=== PATIENT | male | born 1960 | race African-American/Black ===

== ENCOUNTER 2016-07-16 07:42 | Emergency (ER) | payer OTHER ==
[~2016-07-16] VITALS: Ht 190.5 cm; Wt 63.5 kg
[~2016-07-16 07:42] MED LIST: ALBU8.5H6 IH; ASPI-612 PO; HYDR12.53 PO; IPRA4AER IH; LISI-338 PO; POTASSIUM CHLO10 MEQ PO
[2016-07-16 07:53] VITALS: BP 130/91
--- NOTE | 2016-07-16 07:57 | PHYS DOC ---
Past Medical History Past Medical History: Cancer, COPD, GERD, High Cholesterol, Hypertension Past Surgical History: Other Additional Past Surgical Histo: rt hernia(w/out repair), LLL removal (from lung CA) Smoking: Cigarettes Alcohol Use: None Drug Use: None Adult General Chief Complaint Chief Complaint: WRIST PAIN HPI HPI Patient is a 55 year old male presents to the emergency department stating that he got up to go the bathroom last night became lightheaded and dizzy and fell. Patient states that he fell because he was hyperventilating due to a: His oxygen tubing from his cat. Patient states that he did not have any chest pain. Patient is here complaining of right wrist/forearm pain and discomfort with deformity noted. Patient does have significant swelling into the hand. Patient is right-hand dominant. Review of Systems Review of Systems Constitutional: Denies fever or chills [] Eyes: Denies change in visual acuity, redness, or eye pain [] HENT: Denies nasal congestion or sore throat [] Respiratory: Denies cough or shortness of breath [] Cardiovascular: No additional information not addressed in HPI [] GI: Denies abdominal pain, nausea, vomiting, bloody stools or diarrhea [] : Denies dysuria or hematuria [] Musculoskeletal: Denies back pain. C/o right wrist and forearm pain Integument: Denies rash or skin lesions [] Neurologic: Denies headache, focal weakness or sensory changes [] Endocrine: Denies polyuria or polydipsia [] Current Medications Current Medications Current Medications Medications (Trade) Dose Ordered Sig/Nickie Start Time Stop Time Status Last Admin Dose Admin Acetaminophen/ Hydrocodone Bitart (Lortab 5/325) 2 tab 1X ONCE 07/16/16 08:00 07/16/16 08:01 DC 07/16/16 08:02 2 TAB Allergies Allergies Allergies Coded Allergies Type Severity Reaction Last Updated Verified broccoli Allergy Intermediate 07/16/16 No Penicillins Allergy Unknown 06/10/13 Yes Physical Exam Physical Exam Constitutional: Well developed, well nourished, no acute distress, non-toxic appearance. [] HENT: Normocephalic, atraumatic, bilateral external ears normal, oropharynx moist, no oral exudates, nose normal. [] Eyes: PERRLA, EOMI, conjunctiva normal, no discharge. [] Neck: Normal range of motion, no tenderness, supple, no stridor. [] Cardiovascular:Heart rate regular rhythm per right radial Lungs & Thorax: no respiratory distress noted Skin: Warm, dry, no erythema, no rash. [] Back: No tenderness Extremities: Right wrist/forearm tenderness with deformity noted, Significant swelling of the forearm noted, right radial pulse 2+ cap refill brisk, good sensation noted. No cyanosis, no clubbing, ROM intact, no edema. [] Neurologic: Alert and oriented X 3, normal motor function, normal sensory function, no focal deficits noted. [] Psychologic: Affect normal, judgement normal, mood normal. [] Current Patient Data Vital Signs Vital Signs Date Time Temp Pulse Resp B/P (MAP) Pulse Ox O2 Delivery O2 Flow Rate FiO2 07/16/16 07:53 98.7 89 22 100 Nasal Cannula 6.0 98.7 EKG EKG [] Radiology/Procedures Radiology/Procedures [facility] [address] [place], [place] [id number] IMAGING REPORT Signed PATIENT: DEVIN ELIZALDE JR ACCOUNT: [id number] : 1960 LOCATION: ER AGE: 55 SEX: M EXAM STATUS: PRE ER ORD. PHYSICIAN: ANGELIQUE DUNBAR APRN REASON: pain and injury PROCEDURE: WRIST 3V RIGHT Indication pain associated with a fall. AP and 2 oblique views of the right wrist were obtained. A true lateral view was not obtained. There is an acute, traumatic, comminuted fracture of the distal ulnar diaphysis. There is no significant displacement of fracture fragments. There is a small avulsion fracture off the radial side of the navicular. Anjum dislocation at the radial ulnar joint is not suggested but again no true lateral view was obtained DICTATED and SIGNED BY: NII MALONE MD DATE: 07/16/16808 CC: ANGELIQUE DUNBAR APRN; KIMBERLI OROZCO APRN ~ [] Course & Med Decision Making Course & Med Decision Making Pertinent Labs and Imaging studies reviewed. (See chart for details) X-rays positive for fracture along the right ulnar area and the navicular radial side. Patient will be placed in a sugar tong splint with recommendations for ice packs elevation as much as possible. Patient will be provided with orthopedic to follow-up with. He'll also be provided with hydrocodone for severe pain and discomfort. He was instructed this medication will cause drowsiness do not take any be alert and oriented. Patient was encouraged to keep the splint in place. He will be discharged home in stable condition. Signs and symptoms to return back to emergency department been provided. [] Dragon Disclaimer Dragon Disclaimer This electronic medical record was generated, in whole or in part, using a voice recognition dictation system. Departure Departure Impression: Primary Impression: Fracture of right ulna Additional Impression: Wrist fracture, right Disposition: HOME, SELF-CARE Condition: STABLE Referrals: KIMBERLI OROZCO APRN (PCP) MAN WAITE MD Patient Instructions: Arm Sling Use, [id number], Forearm Fracture, Easy-to- Read, Splint Care, [id number] Additional Instructions: Activity as tolerated Ibuprofen 600 mg every 8 hours with food stop taking if you develop upset stomach [place] for severe pain this medication will cause drowsiness do not take if you need to be alert and oriented. Keep the splint in place Ice packs on 20 minutes and off 20 minutes several times a day Elevation as much as possible Followup with orthopedic in 5-7 days Return to emergency department as needed for signs and symptoms that become worse. Scripts Hydrocodone/Apap 5-325 (NORCO 5-325 TABLET) 1 Each Tablet 1 TAB PO PRN Q6HRS Y for PAIN, #20 TAB 0 Refills Prov: ANGELIQUE DUNBAR APRN 07/16/16 Splinting Splinting : Location: right arm Hand-Made Type: orthoglass Splint: sugar-tong Pre-Proc Neuro Vasc Exam: normal Post-Proc Neuro Vasc Exam: normal Problem Qualifiers ANGELIQUE DUNBAR APRN Jul 16, 2016 07:57
[2016-07-16] MEDS ORDERED: HYDROcodone/APAP 5/325MG 1 TAB TABLET PO ONE (08:00)
--- NOTE | 2016-07-16 08:14 | RAD ---
Indication pain associated with a fall. AP and 2 oblique views of the right wrist were obtained. A true lateral view was not obtained. There is an acute, traumatic, comminuted fracture of the distal ulnar diaphysis. There is no significant displacement of fracture fragments. There is a small avulsion fracture off the radial side of the navicular. Anjum dislocation at the radial ulnar joint is not suggested but again no true lateral view was obtained
[2016-07-16] MEDS ORDERED: HYDR-971 PO (08:19)
== END 2016-07-16 08:54 | disposition home or self-care (01) ==
LOC: ER 07:42
DX: S52.601A Unspecified fracture of lower end of right ulna, initial encounter for closed fracture (principal); S62.101A Fracture of unspecified carpal bone, right wrist, initial encounter for closed fracture; E78.00 Pure hypercholesterolemia, unspecified; I10 Essential (primary) hypertension; J44.9 Chronic obstructive pulmonary disease, unspecified; K21.9 Gastro-esophageal reflux disease without esophagitis; F17.210 Nicotine dependence, cigarettes, uncomplicated; Z88.0 Allergy status to penicillin; Z91.018 Allergy to other foods; W19.XXXA Unspecified fall, initial encounter; Y93.89 Activity, other specified; Y99.8 Other external cause status; Y92.89 Other specified places as the place of occurrence of the external cause
CPT/HCPCS: 29125; 73110; 99284-25

== ENCOUNTER 2016-08-18 04:04 | Emergency (ER) | payer OTHER ==
[~2016-08-18] VITALS: Ht 190.5 cm; Wt 63.5 kg
[~2016-08-18 04:04] MED LIST changes: +HYDR-971 PO
[2016-08-18 04:20] VITALS: BP 164/110
[2016-08-18 04:32] LABS: BASO % 1 % (0-3); EOS % 2 % (0-3); HEMATOCRIT 42.1 % (39.0-53.0); HEMOGLOBIN 13.7 g/dL (13.0-17.5); LYMPH # 2.4 x10^3/uL (1.0-4.8); LYMPH % 61 % (24-48); MEAN CORPUSCULAR HEMOGLOBIN 30 pg (25-35); MEAN CORPUSCULAR HGB CONC 33 g/dL (31-37); MEAN CORPUSCULAR VOLUME 92 fL (79-100); MONO % 6 % (0-9); NEUT % 30 % (31-73); PLATELET COUNT 237 x10^3/uL (140-400); RED BLOOD COUNT 4.56 x10^6/uL (4.30-5.70)
[2016-08-18 04:40] LABS: CALCIUM 8.7 mg/dL (8.5-10.1); CREATININE 0.7 mg/dL (0.7-1.3); GFR 142.2; POTASSIUM 3.3 mmol/L (3.5-5.1)
[2016-08-18] MEDS ORDERED: ONDA4TAB10 SL (04:42)
[2016-08-18] MEDS ORDERED: MORP15TA PO (04:42)
--- NOTE | 2016-08-18 04:42 | PHYS DOC ---
Past Medical History Past Medical History: Cancer, COPD, GERD, High Cholesterol, Hypertension Past Surgical History: Other Additional Past Surgical Histo: rt hernia(w/out repair), LLL removal (from lung CA) Alcohol Use: None Drug Use: None Adult General Chief Complaint Chief Complaint: ABDOMINAL PAIN HPI HPI 55-year-old male presenting to the emergency department today with right groin pain. He has history of a hernia and he has pain in his hernia site. It is associated with nausea without vomiting. The pain is mild intermittent. He reports he is able to put his hernia back in. The pain is nonradiating. No alleviating or exacerbating factors present. The patient has chronic COPD and is baseline requires 2-4 L nasal cannula. Review of systems is negative for chest pain shortness of breath fevers chills vomiting dark blood in his stools. All other review of systems is negative unless otherwise noted in history of present illness. ED course: 55-year-old gentleman presenting with pain in his hernia site. Vital signs unremarkable. Pertinent physical exam findings showed a inguinal hernia that is not incarcerated and not strangulated. It is easily reducible. Otherwise the abdomen is soft and nontender. Nondistended. The remainder of the examination is unremarkable. IV established. Nausea and pain medications given along with drawing of blood work. Blood work reviewed. Patient feeling better after nausea and pain medication and subsequent discharged home with referral to a general surgeon for hernia repair. The patient was then discharged home in stable condition to follow up with their primary care physician over the next 2- 3 days and a general surgeon within the next 7-10 days. They were to return if their symptoms worsened or if they were concerned for any reason. [id number] discharge instructions and return precautions were given. Patient's questions were answered to their satisfaction. Patient is comfortable plan. Review of Systems Review of Systems SEE ABOVE. Current Medications Current Medications Current Medications Medications (Trade) Dose Ordered Sig/Nickie Start Time Stop Time Status Last Admin Dose Admin Hydromorphone HCl (Dilaudid) 0.5 mg 1X ONCE 08/18/16 05:00 08/18/16 05:01 DC 08/18/16 04:31 0.5 MG Ondansetron HCl (Zofran) 4 mg 1X ONCE 08/18/16 05:00 08/18/16 05:01 DC 08/18/16 04:31 4 MG Allergies Allergies Allergies Coded Allergies Type Severity Reaction Last Updated Verified broccoli Allergy Intermediate 07/16/16 No Penicillins Allergy Unknown 06/10/13 Yes Physical Exam Physical Exam SEE ABOVE Constitutional: Well developed, well nourished, no acute distress, non-toxic appearance. [] HENT: Normocephalic, atraumatic, bilateral external ears normal, oropharynx moist, no oral exudates, nose normal. [] Eyes: PERRLA, EOMI, conjunctiva normal, no discharge. [] Neck: Normal range of motion, no tenderness, supple, no stridor. [] Cardiovascular:Heart rate regular rhythm, no murmur [] Lungs & Thorax: Bilateral breath sounds clear to auscultation [] Abdomen: Bowel sounds normal, soft, no tenderness, no masses, no pulsatile masses. [] Skin: Warm, dry, no erythema, no rash. [] Back: No tenderness, no CVA tenderness. [] Extremities: No tenderness, no cyanosis, no clubbing, ROM intact, no edema. [] Neurologic: Alert and oriented X 3, normal motor function, normal sensory function, no focal deficits noted. [] Psychologic: Affect normal, judgement normal, mood normal. [] Current Patient Data Vital Signs Vital Signs Date Time Temp Pulse Resp B/P (MAP) Pulse Ox O2 Delivery O2 Flow Rate FiO2 08/18/16 04:31 20 08/18/16 04:20 97.7 87 164/110 (128) 100 Nasal Cannula 6.0 97.7 Lab Values Laboratory Tests Test 08/18/16 04:11 White Blood Count 4.0 x10^3/uL (4.0-11.0) Red Blood Count 4.56 x10^6/uL (4.30-5.70) Hemoglobin 13.7 g/dL (13.0-17.5) Hematocrit 42.1 % (39.0-53.0) Mean Corpuscular Volume 92 fL (79-100) Mean Corpuscular Hemoglobin 30 pg (25-35) Mean Corpuscular Hemoglobin Concent 33 g/dL (31-37) Red Cell Distribution Width 13.0 % (11.5-14.5) Platelet Count 237 x10^3/uL (140-400) Neutrophils (%) (Auto) 30 % (31-73) L Lymphocytes (%) (Auto) 61 % (24-48) H Monocytes (%) (Auto) 6 % (0-9) Eosinophils (%) (Auto) 2 % (0-3) Basophils (%) (Auto) 1 % (0-3) Neutrophils # (Auto) 1.2 x10^3uL (1.8-7.7) L Lymphocytes # (Auto) 2.4 x10^3/uL (1.0-4.8) Monocytes # (Auto) 0.2 x10^3/uL (0.0-1.1) Eosinophils # (Auto) 0.1 x10^3/uL (0.0-0.7) Basophils # (Auto) 0.0 x10^3/uL (0.0-0.2) Sodium Level 148 mmol/L (136-145) H Potassium Level 3.3 mmol/L (3.5-5.1) L Chloride Level 110 mmol/L (98-107) H Carbon Dioxide Level 29 mmol/L (21-32) Anion Gap 9 (6-14) Blood Urea Nitrogen 11 mg/dL (8-26) Creatinine 0.7 mg/dL (0.7-1.3) Estimated GFR (Cockcroft-Gault) 142.2 Glucose Level 89 mg/dL (70-99) Lactic Acid Level 1.7 mmol/L (0.4-2.0) Calcium Level 8.7 mg/dL (8.5-10.1) Total Bilirubin 0.4 mg/dL (0.2-1.0) Direct Bilirubin 0.1 mg/dL (0.0-0.2) Aspartate Amino Transferase (AST) 39 U/L (15-37) H Alanine Aminotransferase (ALT) 36 U/L (16-63) Alkaline Phosphatase 150 U/L (46-116) H Troponin I Quantitative < 0.017 ng/mL (0.000-0.055) Total Protein 7.4 g/dL (6.4-8.2) Albumin 3.6 g/dL (3.4-5.0) Lipase 151 U/L (73-393) Laboratory Tests 08/18/16 04:11 Laboratory Tests 08/18/16 04:11 EKG EKG [] Radiology/Procedures Radiology/Procedures [] Course & Med Decision Making Course & Med Decision Making Pertinent Labs and Imaging studies reviewed. (See chart for details) [] Dragon Disclaimer Dragon Disclaimer This electronic medical record was generated, in whole or in part, using a voice recognition dictation system. Departure Departure Impression: Primary Impression: Hernia Additional Impression: Inguinal hernia Disposition: HOME, SELF-CARE Condition: STABLE Referrals: UNKNOWN PCP NAME (PCP) KEITH NELSON MD, STEPHEN J MD Patient Instructions: Inguinal Hernia, Adult Additional Instructions: Thank you for allowing us to participate in your care today. Followup with your primary care physician in 3 days if your symptoms do not improve. Call your Primary Doctor tomorrow and inform them of your visit today. If you do not have a primary care provider you can ask for a list of our primary care providers. Return to the emergency department you have any new or concerning findings. This should be evaluated by the primary care physician and any necessary consulting services for continued management within a few days after discharge. Return to emergency room if you have any new or concerning symptoms including but not limited to fever, chills, nausea, vomiting, intractable pain, any new rashes, chest pain, shortness of air, uncontrolled bleeding, difficulty breathing, and/or vision loss. You may have been prescribed medication that can change in your level of thinking and ability to operate machinery. These medications include hydrocodone and Ativan. Also, Benadryl has been known to do this as well. Be sure to check with your pharmacist and ask if the medications you've prescribed can affect your level of consciousness. I recommend not operating heavy machinery or driving while on medication such as these. Scripts Morphine Sulfate (MORPHINE SULFATE) 15 Mg Tablet 1 TAB PO PRN Q6-8HRS Y for SEVERE PAIN, #8 TAB Prov: LUCIA BORREGO MD 08/18/16 Ondansetron (ZOFRAN ODT) 4 Mg Tab.rapdis 1 TAB SL PRN Q8HRS Y for NAUSEA, #6 TAB Prov: LUCIA BORREGO MD 08/18/16 Problem Qualifiers LUCIA BORREGO MD Aug 18, 2016 04:42
[2016-08-18 04:46] LABS: ALBUMIN 3.6 g/dL (3.4-5.0); DIRECT BILIRUBIN 0.1 mg/dL (0.0-0.2); TOTAL BILIRUBIN 0.4 mg/dL (0.2-1.0); TOTAL PROTEIN 7.4 g/dL (6.4-8.2)
[2016-08-18] MEDS ORDERED: HYDROmorphone 2 MG/ML VIAL IV ONE (05:00)
[2016-08-18] MEDS ORDERED: ONDANSETRON PF 4 MG/2 ML VIAL. IV ONE (05:00)
== END 2016-08-18 05:35 | disposition home or self-care (01) ==
LOC: ER 04:04
DX: K40.90 Unilateral inguinal hernia, without obstruction or gangrene, not specified as recurrent (principal); J44.9 Chronic obstructive pulmonary disease, unspecified; K21.9 Gastro-esophageal reflux disease without esophagitis; E78.00 Pure hypercholesterolemia, unspecified; I10 Essential (primary) hypertension; Z88.0 Allergy status to penicillin; Z91.018 Allergy to other foods
CPT/HCPCS: 36415; 80048; 80076; 83605; 83690; 84484; 85027; 96374; 96375; 99284; J1170; J2405